=== PATIENT | male | born 1965 | race African-American/Black ===

== ENCOUNTER 2017-06-18 08:21 | Emergency (ER) | payer BC ==
[2017-06-18 08:30] VITALS: BP 129/76
--- NOTE | 2017-06-18 09:24 | ER Document Report ---
ED Skin Rash/Insect Bite/Abscs - General Chief Complaint: Insect Bite Stated Complaint: POSSIBLE INSECT BITE Time Seen by Provider: 06/18/17 09:18 Mode of Arrival: Ambulatory Information source: Patient TRAVEL OUTSIDE OF THE [place] IN LAST 30 DAYS: No - HPI Patient complains to provider of: Skin rash/lesion, Possible insect bite Onset: Yesterday Onset/Duration: Sudden Quality of pain: Burning Severity: Mild Skin Character: Bullous, Erythema, Tenderness Skin Temperature: Warm Quality of rash: Itchy, Burning Identify cause: No Exacerbated by: Movement Relieved by: Remaining still Similar symptoms previously: No Recently seen / treated by doctor: No - Related Data Allergies/Adverse Reactions: No Known Allergies Allergy (Unverified 06/18/17 08:30) Past Medical History - General Information source: Patient - Social History Smoking Status: Never Smoker Frequency of alcohol use: Occasional Drug Abuse: None Family History: Reviewed & Not Pertinent Patient has suicidal ideation: No Patient has homicidal ideation: No Renal/ Medical History: Denies: Hx Peritoneal Dialysis Review of Systems - Review of Systems Constitutional: denies: Chills, Fever Cardiovascular: denies: Chest pain, Palpitations Respiratory: denies: Cough, Short of breath Gastrointestinal: denies: Diarrhea, Vomiting Physical Exam - Vital signs Vitals: Temp Pulse Resp BP Pulse Ox 98.7 F 62 15 129/76 H 99 06/18/17 08:25 06/18/17 08:25 06/18/17 08:25 06/18/17 08:25 06/18/17 08:25 Interpretation: Normal - General General appearance: Appears well, Alert - Respiratory Respiratory status: No respiratory distress Chest status: Nontender Breath sounds: Normal Chest palpation: Normal - Cardiovascular Rhythm: Regular Heart sounds: Normal auscultation Murmur: No - Extremities General upper extremity: Normal inspection General lower extremity: Tender Calf: Tender, Other - erythema/bullous lesion - Neurological Cognition: Normal Orientation: AAOx4 [place] Coma Scale Eye Opening: Spontaneous Ayesha Coma Scale Verbal: Oriented [place] Coma Scale Motor: Obeys Commands [place] Coma Scale Total: 15 - Psychological Associated symptoms: Normal affect, Normal mood - Skin Skin Temperature: Warm Skin Moisture: Dry Skin Color: Erythema Skin irregularity: Rash, Tender indurated area Location of irregularity: Extremities Character of irregularity: Bullous Irregularity with: Swelling - ? early cellulitis, Tenderness, Warmth, Induration , Well defined border, Inflammation Course - Vital Signs Vital signs: Temp Pulse Resp BP Pulse Ox 98.7 F 62 15 129/76 H 99 06/18/17 08:25 06/18/17 08:25 06/18/17 08:25 06/18/17 08:25 06/18/17 08:25 Discharge - Discharge Clinical Impression: Insect bite Instructions: Cellulitis ([facility]) Additional Instructions: Please call your doctor as soon as possible to arrange for follow-up. Please seek medical attention immediately if he has problems with increasing pain, fever, increasing redness or swelling or any other concerns. Use bacitracin and a Band-Aid on the area twice a day until healed. Prescriptions: Cephalexin Monohydrate [Keflex 500 mg Capsule] 500 mg PO QID #20 capsule Forms: Return to Work
== END 2017-06-18 09:37 | disposition home or self-care (01) ==
LOC: ER 08:21 → EDBD 08:21 → ER 09:37
DX: S80.869A Insect bite (nonvenomous), unspecified lower leg, initial encounter (principal); S40.869A Insect bite (nonvenomous) of unspecified upper arm, initial encounter; W57.XXXA Bitten or stung by nonvenomous insect and other nonvenomous arthropods, initial encounter
CPT/HCPCS: 99281

== ENCOUNTER 2019-06-10 03:03 | Emergency (ER) | payer BC ==
[2019-06-10] MEDS ORDERED: AMOXICILLIN TRIHYDRATE 500 MG CAPSULE PO ONE (03:55)
[2019-06-10] MEDS ORDERED: GENTAMICIN SULFATE 0.3% OPH SOLN (5 ML/ER DISP) OS SCH (04:00)
--- NOTE | 2019-06-10 04:01 | ER Document Report ---
ED General - General Chief Complaint: Sinus Congestion Stated Complaint: CONGESTION Time Seen by Provider: 06/10/19 03:20 Mode of Arrival: Ambulatory Information source: Patient TRAVEL OUTSIDE OF THE [place] IN LAST 30 DAYS: No - HPI Notes: Patient is a otherwise healthy 54-year-old male comes in with 2 to 3-day history of cough congestion and sinus discomfort. He reports a history of seasonal allergies. He also has some left eye redness but no vision loss or photophobia. He questions getting something in his eye earlier. The patient denies any his tory of glaucoma or eyeball pain. No chest pain or difficulty breathing or constipation or diarrhea or nausea or vomiting. He questions previous fever and states that his cough is occasionally productive of yellowish phlegm. No skin rash. - Related Data Allergies/Adverse Reactions: No Known Allergies Allergy (Unverified 06/18/17 08:30) Past Medical History - General Information source: Patient - Social History Smoking Status: Current Every Day Smoker Chew tobacco use (# tins/day): No Frequency of alcohol use: Occasional Drug Abuse: None Lives with: Family Family History: Reviewed & Not Pertinent Patient has suicidal ideation: No Patient has homicidal ideation: No Renal/ Medical History: Denies: Hx Peritoneal Dialysis Review of Systems - Review of Systems -: Yes All other systems reviewed and negative Physical Exam - Vital signs Vitals: Temp Pulse Resp BP Pulse Ox 97.7 F 78 16 133/81 H 100 06/10/19 03:08 06/10/19 03:08 06/10/19 03:08 06/10/19 03:08 06/10/19 03:08 - Notes Notes: PHYSICAL EXAMINATION: GENERAL: Well-appearing, well-nourished and in no acute distress. HEAD: Atraumatic, normocephalic. EYES: Pupils equal round and reactive to light, extraocular movements intact, sclera anicteric, conjunctiva are normal on the right, injected on the left. Both lids are everted with no foreign body. There is no fluoro staining noted. The anterior chamber is clear. Minimal clear discharge noted. No periorbital cellulitis. ENT: Nares patent, oropharynx clear with mild clear exudates. Moist mucous membranes. Patient has mild bilateral maxillary sinus tenderness noted. NECK: Normal range of motion, supple without lymphadenopathy LUNGS: Breath sounds clear to auscultation bilaterally and equal. No wheezes rales or rhonchi. HEART: Regular rate and rhythm without murmurs ABDOMEN: Soft, nontender, nondistended abdomen. No guarding, no rebound. No masses appreciated. Musculoskeletal: Normal range of motion, no pitting or edema. No cyanosis. NEUROLOGICAL: Cranial nerves grossly intact. Normal speech, normal gait. Normal sensory, motor exams PSYCH: Normal mood, normal affect. SKIN: Warm, Dry, normal turgor, no rashes or lesions noted. Course - Re-evaluation Re-evalutation: 06/10/19 03:57 Patient was given gentamicin ophthalmic solution and amoxicillin by mouth. No evidence for sepsis or systemic infection or iritis or glaucoma or corneal foreign body. No corneal abrasion or dendritic form. No clinical suggestion for pneumonia. 06/10/19 03:58 06/10/19 03:58 - Vital Signs Vital signs: Temp Pulse Resp BP Pulse Ox 97.7 F 78 16 133/81 H 100 06/10/19 03:08 06/10/19 03:08 06/10/19 03:08 06/10/19 03:08 06/10/19 03:08 Discharge - Discharge Clinical Impression: Allergic rhinitis Qualifiers: Allergic rhinitis trigger: unspecified Allergic rhinitis seasonality: unspecified Qualified Code(s): J30.9 - Allergic rhinitis, unspecified Sinusitis Qualifiers: Sinusitis location: maxillary Chronicity: acute Recurrence: non-recurrent Qualified Code(s): J01.00 - Acute maxillary sinusitis, unspecified Condition: Stable Disposition: HOME, SELF-CARE Instructions: Nasal Corticosteroid Inhaler ([facility]), OTC Antihistamines ([facility]), Sinusitis ([facility]) Prescriptions: Amoxicillin 1 tab PO TID #30 tab
[2019-06-10 04:15] VITALS: BP 119/84
== END 2019-06-10 04:15 | disposition home or self-care (01) ==
LOC: ER 03:03
DX: J01.00 Acute maxillary sinusitis, unspecified (principal); J30.9 Allergic rhinitis, unspecified; R09.81 Nasal congestion; H57.89 Other specified disorders of eye and adnexa; R05 Cough; F17.200 Nicotine dependence, unspecified, uncomplicated
CPT/HCPCS: 99283; J3490

== ENCOUNTER → 2020-07-28 | Outpatient (CLI) | payer BC ==
[2020-07-28 10:32] LABS: ABSOLUTE EOSINOPHILS # (AUTO) 0.1 10^3/uL (0.0-0.6); ABSOLUTE LYMPHOCYTES (AUTO) 2.3 10^3/uL (0.5-4.7); ABSOLUTE MONOCYTES (AUTO) 0.8 10^3/uL (0.1-1.4); ABSOLUTE NEUT (AUTO) 2.9 10^3/uL (1.7-8.2); BASOPHILS % (AUTO) 0.6 % (0-2); EOSINOPHILS % (AUTO) 2.1 % (0-6); HEMATOCRIT 39.8 % (37.9-51.0); HEMOGLOBIN 13.3 g/dL (13.5-17.0); LYMPHOCYTES % (AUTO) 36.9 % (13-45); MEAN CORPUSCULAR HEMOGLOBIN 29.9 pg (27.0-33.4); MEAN CORPUSCULAR HGB CONC 33.5 g/dL (32.0-36.0); MEAN CORPUSCULAR VOLUME 89 fl (80-97); MONOCYTES % (AUTO) 13.3 % (3-13); PLATELET COUNT 265 10^3/uL (150-450); RED BLOOD COUNT 4.46 10^6/uL (4.35-5.55); RED CELL DISTRIBUTION WIDTH 13.6 % (11.5-14.0); SEGMENTED NEUTROPHILS % (AUTO) 47.1 % (42-78); TOTAL CELLS COUNTED % (AUTO) 100 %; WHITE BLOOD COUNT 6.1 10^3/uL (4.0-10.5)
[2020-07-28 10:50] LABS: ALBUMIN 4.3 g/dL (3.5-5.0); ALKALINE PHOSPHATASE 94 U/L (38-126); ANION GAP 9 (5-19); ASPARTATE AMINO TRANSFERASE 24 U/L (17-59); BILIRUBIN,DIRECT 0.3 mg/dL (0.0-0.4); BLOOD UREA NITROGEN 17 mg/dL (7-20); CALCIUM 9.4 mg/dL (8.4-10.2); CARBON DIOXIDE 30 mmol/L (22-30); CHLORIDE 106 mmol/L (98-107); CHOLESTEROL 168.37 mg/dL (0-200); GLUCOSE 89 mg/dL (75-110); POTASSIUM 4.5 mmol/L (3.6-5.0); TOTAL PROTEIN 8.1 g/dL (6.3-8.2); TRIGLYCERIDES 88 mg/dL (<150)
[2020-07-28 11:01] LABS: DIRECT LDL 103 mg/dL (<100)
== END ==
LOC: OD 09:53
PROVIDERS: ATTEND Nurse Practitioner Family
DX: E78.5 Hyperlipidemia, unspecified (principal); R03.0 Elevated blood-pressure reading, without diagnosis of hypertension
CPT/HCPCS: 36415; 80053; 80061; 85025